=== PATIENT | female | born 1945 | race Caucasian/White ===

== ENCOUNTER 2017-12-18 13:33 | Observation (INO) ==
[2017-12-18 15:22] LABS: Basophils % 0.2 % (0.0-0.8); Hematocrit 29.2 VOL% (35.7-47.0); Hemoglobin 8.5 GM/DL (12.0-16.0); Immature Granulocytes % 0.6 %; Immature Granulocytes Absolute 0.07 #; Lymphocytes # 1.4 10*3/uL (1.4-4.0); Lymphocytes % 12.5 % (21.3-54.2); Mean Corpuscular HGB Conc 29.1 GM/DL (32-36); Mean Corpuscular Hemoglobin 22 PG (27-34); Mean Platelet Volume 9.8 FL (9.6-12.0); Monocytes # 0.4 10*3/uL (0.11-0.8); Monocytes % 3.9 % (1.7-12.7); Neutrophils # 9.3 10*3/uL (1.4-7.4); Neutrophils % 82.8 % (38.7-73.9); Platelet Count 377 T/CUMM (130-400); Red Blood Count 3.84 MC/CUMM (3.8-5.5); Red Cell Distribution Width 17.3 % (9.3-17.3); White Blood Count 11.3 T/CUMM (4-12)
[2017-12-18 15:44] LABS: Alanine Aminotransferase 29 U/L (13-56); Albumin 3.2 G/DL (3.4-5.0); Alkaline Phosphatase 76 U/L (45-117); Aspartate Amino Transferase 25 U/L (0-37); Bilirubin,Total < 0.39 MG/DL (0.2-1.0); Blood Urea Nitrogen 12 MG/DL (7-18); Calcium 8.8 MG/DL (8.5-10.1); Glucose 324 MG/DL (74-106); Osmolality,Calculated 285.8 MOS/KG (273-304); Potassium 4.3 MMOL/L (3.5-5.1); Sodium 137 MMOL/L (136-145); Total Protein 6.4 G/DL (6.4-8.3)
[2017-12-18] MEDS ORDERED: PANTOPRAZOLE 40 MG VIAL IV STA (16:09)
[2017-12-18] MEDS ORDERED: GLUCAGON 1 MG VIAL IM PRN (17:16)
[2017-12-18] MEDS ORDERED: DEXTROSE 50% 25 GM/50 ML VIAL IV PRN (17:16)
[2017-12-18] MEDS ORDERED: ONDANSETRON 4 MG/2 ML VIAL IV PRN (17:16)
[2017-12-18] MEDS ORDERED: MELATONIN 3 MG TABLET PO PRN (17:19)
[2017-12-18] MEDS ORDERED: UREA TOP PRN (17:19)
[2017-12-18] MEDS ORDERED: ALBUTEROL 2.5 MG/3 ML NEB RESP TX PRN (17:19)
[2017-12-18] MEDS ORDERED: FUROSEMIDE 20 MG TABLET PO PRN (17:19)
[2017-12-18] MEDS ORDERED: PSYLLIUM POWDER 3.7 GM/PACK PO PRN (17:19)
[2017-12-18] MEDS ORDERED: hydrOXYzine HCL 25 MG TABLET PO PRN (17:19)
[2017-12-18 18:44] LABS: Basophils % 0.2 % (0.0-0.8); Hematocrit 29.4 VOL% (35.7-47.0); Hemoglobin 8.5 GM/DL (12.0-16.0); Immature Granulocytes % 0.6 %; Immature Granulocytes Absolute 0.07 #; Lymphocytes # 1.5 10*3/uL (1.4-4.0); Lymphocytes % 12.7 % (21.3-54.2); Mean Corpuscular HGB Conc 28.9 GM/DL (32-36); Mean Corpuscular Hemoglobin 22 PG (27-34); Mean Corpuscular Volume 76.4 FL (87-102); Mean Platelet Volume 10.5 FL (9.6-12.0); Monocytes # 0.5 10*3/uL (0.11-0.8); Neutrophils # 9.4 10*3/uL (1.4-7.4); Neutrophils % 82.5 % (38.7-73.9); Platelet Count 401 T/CUMM (130-400); Red Blood Count 3.85 MC/CUMM (3.8-5.5); Red Cell Distribution Width 17.4 % (9.3-17.3); White Blood Count 11.4 T/CUMM (4-12)
[2017-12-18] MEDS: methylPREDNISolone SOD SUC 40 MG/1 ML VIAL IV SCH (18:52)
[2017-12-18] MEDS: AZITHROMYCIN 250 MG TABLET PO SCH (18:52)
[2017-12-18 19:20] LABS: Folate > 24.0 NG/ML (5.4-24.0); Vitamin B12 339 PG/ML (211-911)
[2017-12-18 21:04] LABS: Sedimentation Rate-Westergren 55 MM/HR (0-30)
[2017-12-18 21:11] LABS: Hemoglobin 8.8 GM/DL (12.0-16.0)
[2017-12-18 21:25] LABS: Hematocrit 30.8 VOL% (35.7-47.0)
[2017-12-18] MEDS: FLUTICASONE/SALMETEROL 500-50 DISKUS 14 DOSE INH SCH (21:41)
[2017-12-18] MEDS: diphenhydrAMINE CAP 25 MG CAPSULE PO SCH (21:41)
[2017-12-18] MEDS: INSULIN REGULAR 100 UNIT/ML SUBCUT SCH (21:41)
[2017-12-18] MEDS: ACETAMINOPHEN 325 MG TABLET PO PRN (21:46)
[2017-12-18] MEDS: ALBUTEROL 2.5 MG/3 ML NEB RESP TX SCH (23:08)
[2017-12-19 05:22] LABS: Basophils % 0.1 % (0.0-0.8); Hemoglobin 8.5 GM/DL (12.0-16.0); Immature Granulocytes % 0.5 %; Immature Granulocytes Absolute 0.06 #; Lymphocytes # 1.7 10*3/uL (1.4-4.0); Lymphocytes % 13.7 % (21.3-54.2); Mean Corpuscular HGB Conc 28.7 GM/DL (32-36); Mean Corpuscular Hemoglobin 22 PG (27-34); Mean Corpuscular Volume 75.9 FL (87-102); Mean Platelet Volume 9.8 FL (9.6-12.0); Monocytes # 0.7 10*3/uL (0.11-0.8); Monocytes % 5.4 % (1.7-12.7); Neutrophils # 10.1 10*3/uL (1.4-7.4); Neutrophils % 80.3 % (38.7-73.9); Platelet Count 394 T/CUMM (130-400); Red Cell Distribution Width 17.2 % (9.3-17.3); White Blood Count 12.6 T/CUMM (4-12)
[2017-12-19 05:24] LABS: Hemoglobin 8.5 GM/DL (12.0-16.0)
[2017-12-19 05:30] LABS: Hematocrit 29.6 VOL% (35.7-47.0); Hematocrit 29.7 VOL% (35.7-47.0)
[2017-12-19 05:43] LABS: Hypochromasia 1+
[2017-12-19 05:44] LABS: Microcytosis 2+; Ovalocytes Few; Platelet Estimate Normal; Polychromasia Slight; Spherocytes Slight; Target Cells Slight
[2017-12-19] MEDS: methylPREDNISolone SOD SUC 40 MG/1 ML VIAL IV SCH ×2 (05:55→21:15)
[2017-12-19 06:08] LABS: Calcium 8.9 MG/DL (8.5-10.1); Osmolality,Calculated 281.8 MOS/KG (273-304); Risk Ratio 2.01; Thyroid Stimulating Hormone 0.211 uIU/ml (0.358-3.74); VLDL CHOLESTEROL 23.2 MG/DL
[2017-12-19] MEDS: ALBUTEROL 2.5 MG/3 ML NEB RESP TX SCH ×3 (07:44→23:32)
[2017-12-19] MEDS: INSULIN REGULAR 100 UNIT/ML SUBCUT SCH ×4 (08:13→21:15)
[2017-12-19] MEDS: FLUTICASONE/SALMETEROL 500-50 DISKUS 14 DOSE INH SCH ×2 (08:15→21:14)
[2017-12-19 08:44] LABS: Hemoglobin A1 (Alkaline) 97.5 % (96.5-98.5); Hemoglobin A2 (Alkaline) 2.5 % (1.5-3.5)
[2017-12-19 08:49] LABS: Hematocrit 29.6 VOL% (35.7-47.0); Hemoglobin 8.6 GM/DL (12.0-16.0)
[2017-12-19] MEDS: FEXOFENADINE 60 MG TABLET PO SCH ×2 (08:56→12:14)
[2017-12-19] MEDS: DILTIAZEM CD 120 MG CAPSULE PO SCH ×2 (08:56→12:15)
[2017-12-19] MEDS: SPIRONOLACTONE 25 MG TABLET PO SCH ×2 (08:56→12:15)
[2017-12-19] MEDS: LACTOBACILLUS ACIDOPHILUS/BULGARICUS CAPLET PO SCH ×2 (08:56→12:14)
[2017-12-19] MEDS: MULTIVITAMIN (CENTRUM) TABLET PO SCH ×2 (08:57→12:14)
[2017-12-19] MEDS: LOSARTAN 50 MG TABLET PO SCH ×2 (08:57→12:15)
[2017-12-19] MEDS: FLUoxetine 20 MG CAPSULE PO SCH ×2 (08:57→12:15)
[2017-12-19] MEDS: PANTOPRAZOLE 40 MG TABLET PO SCH ×2 (08:57→13:29)
[2017-12-19] MEDS: diphenhydrAMINE CAP 25 MG CAPSULE PO SCH (21:14)
[2017-12-20] MEDS: ALBUTEROL 2.5 MG/3 ML NEB RESP TX SCH ×3 (07:22→22:59)
[2017-12-20] MEDS: INSULIN REGULAR 100 UNIT/ML SUBCUT SCH ×4 (08:18→21:34)
[2017-12-20] MEDS: FLUTICASONE/SALMETEROL 500-50 DISKUS 14 DOSE INH SCH ×2 (08:18→21:38)
[2017-12-20] MEDS ORDERED: LIDOCAINE 100 MG/5 ML SYRINGE ONE (10:00)
[2017-12-20] MEDS ORDERED: PROPOFOL 200 MG/20 ML VIAL IV ONE (10:00)
[2017-12-20] MEDS: LACTOBACILLUS ACIDOPHILUS/BULGARICUS CAPLET PO SCH (14:00)
[2017-12-20] MEDS: AZITHROMYCIN 250 MG TABLET PO SCH (14:00)
[2017-12-20] MEDS: SPIRONOLACTONE 25 MG TABLET PO SCH (14:00)
[2017-12-20] MEDS: DILTIAZEM CD 120 MG CAPSULE PO SCH (14:01)
[2017-12-20] MEDS: MULTIVITAMIN (CENTRUM) TABLET PO SCH (14:01)
[2017-12-20] MEDS: FLUoxetine 20 MG CAPSULE PO SCH (14:01)
[2017-12-20] MEDS: FEXOFENADINE 60 MG TABLET PO SCH (14:01)
[2017-12-20] MEDS: LOSARTAN 50 MG TABLET PO SCH (14:01)
[2017-12-20] MEDS: PANTOPRAZOLE 40 MG TABLET PO SCH (14:01)
[2017-12-20] MEDS: methylPREDNISolone SOD SUC 40 MG/1 ML VIAL IV SCH ×2 (14:02→21:34)
[2017-12-20] MEDS: diphenhydrAMINE CAP 25 MG CAPSULE PO SCH (21:33)
[2017-12-21] MEDS: ACETAMINOPHEN 325 MG TABLET PO PRN (05:31)
[2017-12-21 06:39] LABS: Calcium 8.7 MG/DL (8.5-10.1); Osmolality,Calculated 290.5 MOS/KG (273-304); Potassium 4.1 MMOL/L (3.5-5.1)
[2017-12-21 06:59] LABS: Basophils % 0.1 % (0.0-0.8); Immature Granulocytes % 0.9 %; Immature Granulocytes Absolute 0.12 #; Lymphocytes # 0.9 10*3/uL (1.4-4.0); Lymphocytes % 6.8 % (21.3-54.2); Mean Corpuscular HGB Conc 28.8 GM/DL (32-36); Mean Corpuscular Hemoglobin 22 PG (27-34); Mean Corpuscular Volume 74.9 FL (87-102); Mean Platelet Volume 10.3 FL (9.6-12.0); Monocytes # 0.6 10*3/uL (0.11-0.8); Monocytes % 4.6 % (1.7-12.7); Neutrophils # 11.9 10*3/uL (1.4-7.4); Neutrophils % 87.6 % (38.7-73.9); Platelet Count 450 T/CUMM (130-400); Red Blood Count 4.27 MC/CUMM (3.8-5.5); Red Cell Distribution Width 17.1 % (9.3-17.3); White Blood Count 13.6 T/CUMM (4-12)
[2017-12-21 07:10] LABS: Hemoglobin 9.2 GM/DL (12.0-16.0)
[2017-12-21 07:16] LABS: Hypochromasia 1+; Microcytosis 1+; Platelet Estimate Adequate
[2017-12-21] MEDS: ALBUTEROL 2.5 MG/3 ML NEB RESP TX SCH ×2 (07:52→14:00)
[2017-12-21] MEDS ORDERED: predniSONE 20 MG TABLET PO SCH (09:00)
[2017-12-21] MEDS ORDERED: FERROUS GLUCONATE 240 MG TABLET PO SCH (09:00)
[2017-12-21] MEDS: INSULIN REGULAR 100 UNIT/ML SUBCUT SCH ×3 (09:13→16:12)
[2017-12-21] MEDS: FLUTICASONE/SALMETEROL 500-50 DISKUS 14 DOSE INH SCH (09:14)
[2017-12-21] MEDS: FLUoxetine 20 MG CAPSULE PO SCH (09:14)
[2017-12-21] MEDS: SPIRONOLACTONE 25 MG TABLET PO SCH (09:14)
[2017-12-21] MEDS: PANTOPRAZOLE 40 MG TABLET PO SCH (09:15)
[2017-12-21] MEDS: FEXOFENADINE 60 MG TABLET PO SCH (09:15)
[2017-12-21] MEDS: LACTOBACILLUS ACIDOPHILUS/BULGARICUS CAPLET PO SCH (09:15)
[2017-12-21] MEDS: MULTIVITAMIN (CENTRUM) TABLET PO SCH (09:15)
[2017-12-21] MEDS: LOSARTAN 50 MG TABLET PO SCH (09:18)
[2017-12-21] MEDS: DILTIAZEM CD 120 MG CAPSULE PO SCH (09:18)
[2017-12-21 16:37] VITALS: BP 141/70
== END 2017-12-21 17:46 | disposition home or self-care (01) ==
LOC: EDBD → EDUNIT# → N.ED 13:33 → N.EDINP 13:33 → N.2E 17:33
PROVIDERS: ADMIT Internal Medicine; ATTEND Family Medicine

== ENCOUNTER 2018-03-26 16:16 | Inpatient (IN) ==
[2018-03-26] MEDS ORDERED: SODIUM CHLORIDE 0.9% 1,000 ML IV STA (17:00)
[2018-03-26] MEDS ORDERED: HYDROCORTISONE 100 MG VIAL IV STA (17:00)
[2018-03-26 18:26] LABS: Alanine Aminotransferase 16 U/L (13-56); Albumin 2.8 G/DL (3.4-5.0); Alkaline Phosphatase 79 U/L (45-117); Aspartate Amino Transferase 23 U/L (0-37); Bilirubin,Total < 0.39 MG/DL (0.2-1.0); Blood Urea Nitrogen 11 MG/DL (7-18); Calcium 8.4 MG/DL (8.5-10.1); Glucose 186 MG/DL (74-106); Osmolality,Calculated 282.4 MOS/KG (273-304); Potassium 3.8 MMOL/L (3.5-5.1); Sodium 140 MMOL/L (136-145); Total Protein 6.3 G/DL (6.4-8.3)
[2018-03-26 18:35] LABS: Basophils # 0.1 10*3/uL (0.0-0.2); Basophils % 0.5 % (0.0-0.8); Eosinophils # 0.1 10*3/uL (0.0-0.87); Eosinophils % 0.5 % (0.00-10.9); Hematocrit 26.1 VOL% (35.7-47.0); Hemoglobin 7.2 GM/DL (12.0-16.0); Immature Granulocytes % 0.5 %; Immature Granulocytes Absolute 0.06 #; Lymphocytes # 2.7 10*3/uL (1.4-4.0); Lymphocytes % 23.9 % (21.3-54.2); Mean Corpuscular HGB Conc 27.6 GM/DL (32-36); Mean Corpuscular Hemoglobin 21 PG (27-34); Mean Corpuscular Volume 74.6 FL (87-102); Mean Platelet Volume 9.8 FL (9.6-12.0); Monocytes # 0.7 10*3/uL (0.11-0.8); Monocytes % 6.6 % (1.7-12.7); Neutrophils # 7.6 10*3/uL (1.4-7.4); Platelet Count 451 T/CUMM (130-400); Red Cell Distribution Width 17.3 % (9.3-17.3); White Blood Count 11.2 T/CUMM (4-12)
[2018-03-26] MEDS ORDERED: ONDANSETRON 4 MG/2 ML VIAL IV PRN (18:57)
[2018-03-26 19:50] LABS: % Iron Saturation 3.2 % (18-50); Ferritin 9.6 ng/ml (8-252)
[2018-03-26] MEDS: ACETAMINOPHEN 325 MG TABLET PO PRN (22:36)
[2018-03-26] MEDS: DOCUSATE SODIUM 100 MG CAPSULE PO SCH (22:57)
[2018-03-27 06:44] LABS: Basophils # 0.1 10*3/uL (0.0-0.2); Basophils % 0.6 % (0.0-0.8); Eosinophils # 0.2 10*3/uL (0.0-0.87); Eosinophils % 1.6 % (0.00-10.9); Hematocrit 25.8 VOL% (35.7-47.0); Immature Granulocytes % 0.7 %; Immature Granulocytes Absolute 0.08 #; Lymphocytes # 4.6 10*3/uL (1.4-4.0); Lymphocytes % 38.1 % (21.3-54.2); Mean Corpuscular HGB Conc 27.5 GM/DL (32-36); Mean Corpuscular Hemoglobin 20 PG (27-34); Mean Corpuscular Volume 73.7 FL (87-102); Mean Platelet Volume 9.8 FL (9.6-12.0); Monocytes # 1.1 10*3/uL (0.11-0.8); Monocytes % 9.3 % (1.7-12.7); Neutrophils % 49.7 % (38.7-73.9); Platelet Count 411 T/CUMM (130-400); Red Cell Distribution Width 17.5 % (9.3-17.3)
[2018-03-27 06:46] LABS: Hemoglobin 7.1 GM/DL (12.0-16.0)
[2018-03-27 06:59] LABS: Hypochromasia Slight; Platelet Estimate Normal; Polychromasia Few
[2018-03-27] MEDS ORDERED: SODIUM CHLORIDE 0.9% 1,000 ML IV PRN (08:21)
[2018-03-27] MEDS: PANTOPRAZOLE 40 MG VIAL IV SCH (09:10)
[2018-03-27] MEDS: DOCUSATE SODIUM 100 MG CAPSULE PO SCH ×2 (09:12→20:45)
[2018-03-27] MEDS ORDERED: UREA TOP PRN (09:42)
[2018-03-27] MEDS ORDERED: hydrOXYzine HCL 25 MG TABLET PO PRN (09:42)
[2018-03-27] MEDS ORDERED: ALBUTEROL 2.5 MG/3 ML NEB RESP TX PRN (09:42)
[2018-03-27] MEDS ORDERED: DEXTROSE 50% 25 GM/50 ML SYRINGE IV PRN (09:45)
[2018-03-27] MEDS ORDERED: GLUCAGON 1 MG VIAL IM PRN (09:45)
[2018-03-27] MEDS: ACETAMINOPHEN 325 MG TABLET PO PRN (10:05)
[2018-03-27] MEDS: DILTIAZEM CD 120 MG CAPSULE PO SCH (10:06)
[2018-03-27] MEDS: INSULIN REGULAR 100 UNIT/ML SUBCUT SCH ×3 (11:36→20:37)
[2018-03-27] MEDS: ALBUTEROL 2.5 MG/3 ML NEB RESP TX SCH (14:03)
[2018-03-27] MEDS: FLUTICASONE/SALMETEROL 500-50 DISKUS 14 DOSE INH SCH (20:31)
[2018-03-27] MEDS: METHOCARBAMOL 500 MG TABLET PO SCH (20:36)
[2018-03-27] MEDS: diphenhydrAMINE CAP 25 MG CAPSULE PO SCH (20:36)
[2018-03-27] MEDS: FLUoxetine 20 MG CAPSULE PO SCH (20:37)
[2018-03-27] MEDS: MELATONIN 3 MG TABLET PO SCH (20:37)
[2018-03-27] MEDS: INSULIN GLARGINE 100 UNIT/ML SUBCUT SCH (20:45)
[2018-03-28] MEDS: ALBUTEROL 2.5 MG/3 ML NEB RESP TX SCH ×4 (00:07→23:50)
[2018-03-28 06:19] LABS: Basophils # 0.1 10*3/uL (0.0-0.2); Basophils % 0.7 % (0.0-0.8); Eosinophils # 0.5 10*3/uL (0.0-0.87); Eosinophils % 3.6 % (0.00-10.9); Hematocrit 30.2 VOL% (35.7-47.0); Immature Granulocytes % 0.5 %; Immature Granulocytes Absolute 0.07 #; Lymphocytes # 4.4 10*3/uL (1.4-4.0); Lymphocytes % 32.3 % (21.3-54.2); Mean Corpuscular HGB Conc 28.5 GM/DL (32-36); Mean Corpuscular Hemoglobin 22 PG (27-34); Mean Corpuscular Volume 75.9 FL (87-102); Mean Platelet Volume 9.8 FL (9.6-12.0); Monocytes # 1.2 10*3/uL (0.11-0.8); Monocytes % 8.7 % (1.7-12.7); Neutrophils # 7.4 10*3/uL (1.4-7.4); Neutrophils % 54.2 % (38.7-73.9); Platelet Count 429 T/CUMM (130-400); Red Blood Count 3.98 MC/CUMM (3.8-5.5); Red Cell Distribution Width 17.2 % (9.3-17.3); White Blood Count 13.7 T/CUMM (4-12)
[2018-03-28 06:24] LABS: Hemoglobin 8.6 GM/DL (12.0-16.0)
[2018-03-28 06:26] LABS: Hypochromasia 1+; Ovalocytes Slight; Platelet Estimate Adequate
[2018-03-28] MEDS: DILTIAZEM CD 120 MG CAPSULE PO SCH (08:47)
[2018-03-28] MEDS: LOSARTAN 50 MG TABLET PO SCH (08:47)
[2018-03-28] MEDS: METHOCARBAMOL 500 MG TABLET PO SCH ×2 (08:48→21:30)
[2018-03-28] MEDS: predniSONE 10 MG TABLET PO SCH (08:48)
[2018-03-28] MEDS: DOCUSATE SODIUM 100 MG CAPSULE PO SCH ×2 (08:48→21:25)
[2018-03-28] MEDS: FEXOFENADINE 60 MG TABLET PO SCH (08:48)
[2018-03-28] MEDS: PANTOPRAZOLE 40 MG VIAL IV SCH (08:49)
[2018-03-28] MEDS: INSULIN REGULAR 100 UNIT/ML SUBCUT SCH ×5 (08:49→21:44)
[2018-03-28] MEDS: AZITHROMYCIN 250 MG TABLET PO SCH (08:50)
[2018-03-28] MEDS: FLUTICASONE/SALMETEROL 500-50 DISKUS 14 DOSE INH SCH ×2 (08:55→21:26)
[2018-03-28] MEDS: ACETAMINOPHEN 325 MG TABLET PO PRN (16:10)
[2018-03-28] MEDS: diphenhydrAMINE CAP 25 MG CAPSULE PO SCH (21:25)
[2018-03-28] MEDS: MELATONIN 3 MG TABLET PO SCH (21:25)
[2018-03-28] MEDS: FLUoxetine 20 MG CAPSULE PO SCH (21:25)
[2018-03-28] MEDS: INSULIN GLARGINE 100 UNIT/ML SUBCUT SCH (21:26)
[2018-03-29] MEDS: ACETAMINOPHEN 325 MG TABLET PO PRN ×3 (00:26→23:34)
[2018-03-29] MEDS: ALBUTEROL 2.5 MG/3 ML NEB RESP TX SCH ×3 (07:00→23:45)
[2018-03-29] MEDS: DILTIAZEM CD 120 MG CAPSULE PO SCH (08:17)
[2018-03-29] MEDS: predniSONE 10 MG TABLET PO SCH (08:17)
[2018-03-29] MEDS: FEXOFENADINE 60 MG TABLET PO SCH (08:17)
[2018-03-29] MEDS: PANTOPRAZOLE 40 MG VIAL IV SCH (08:18)
[2018-03-29] MEDS: LOSARTAN 50 MG TABLET PO SCH (08:18)
[2018-03-29] MEDS: METHOCARBAMOL 500 MG TABLET PO SCH ×2 (08:18→21:41)
[2018-03-29] MEDS: DOCUSATE SODIUM 100 MG CAPSULE PO SCH ×2 (08:18→21:40)
[2018-03-29] MEDS: FLUTICASONE/SALMETEROL 500-50 DISKUS 14 DOSE INH SCH ×2 (08:20→21:42)
[2018-03-29] MEDS: INSULIN REGULAR 100 UNIT/ML SUBCUT SCH ×4 (08:32→21:40)
[2018-03-29] MEDS ORDERED: FERROUS GLUCONATE 240 MG TABLET PO SCH (09:00)
[2018-03-29] MEDS ORDERED: LOPERAMIDE 2 MG CAPSULE PO PRN (16:38)
[2018-03-29] MEDS: predniSONE 20 MG TABLET PO SCH (18:45)
[2018-03-29] MEDS: FLUoxetine 20 MG CAPSULE PO SCH (21:40)
[2018-03-29] MEDS: MELATONIN 3 MG TABLET PO SCH (21:40)
[2018-03-29] MEDS: diphenhydrAMINE CAP 25 MG CAPSULE PO SCH (21:40)
[2018-03-29] MEDS: INSULIN GLARGINE 100 UNIT/ML SUBCUT SCH (21:41)
[2018-03-30 05:37] LABS: Hematocrit 30.9 VOL% (35.7-47.0)
[2018-03-30 05:38] LABS: Hemoglobin 8.9 GM/DL (12.0-16.0)
[2018-03-30] MEDS: ALBUTEROL 2.5 MG/3 ML NEB RESP TX SCH (07:40)
[2018-03-30] MEDS: predniSONE 20 MG TABLET PO SCH (13:18)
[2018-03-30] MEDS: LOSARTAN 50 MG TABLET PO SCH (13:18)
[2018-03-30] MEDS: DILTIAZEM CD 120 MG CAPSULE PO SCH (13:18)
[2018-03-30] MEDS: DOCUSATE SODIUM 100 MG CAPSULE PO SCH (13:18)
[2018-03-30] MEDS: FEXOFENADINE 60 MG TABLET PO SCH (13:19)
[2018-03-30] MEDS: PANTOPRAZOLE 40 MG VIAL IV SCH (13:21)
[2018-03-30] MEDS: predniSONE 10 MG TABLET PO SCH (13:21)
[2018-03-30] MEDS: METHOCARBAMOL 500 MG TABLET PO SCH (13:22)
[2018-03-30] MEDS: AZITHROMYCIN 250 MG TABLET PO SCH (13:22)
[2018-03-30] MEDS: INSULIN REGULAR 100 UNIT/ML SUBCUT SCH ×2 (13:24→13:25)
[2018-03-30] MEDS: FLUTICASONE/SALMETEROL 500-50 DISKUS 14 DOSE INH SCH (13:24)
[2018-03-30 14:18] VITALS: BP 143/79
== END 2018-03-30 13:25 | disposition home health service (06) | DRG 812 ==
LOC: EDBD → EDUNIT# → N.EDINP 16:16 → N.ED 16:16 → SUPCPDRO 18:57 → N.4E 19:51
PROVIDERS: ADMIT Family Medicine; ATTEND Family Medicine

== ENCOUNTER 2018-04-14 12:48 | Inpatient (IN) ==
[2018-04-14] MEDS: LACTATED RINGERS 1,000 ML IV SCH ×2 (13:34→15:42)
[2018-04-14 13:48] LABS: Apearance,Urine CLEAR (Clear); Bilirubin,Urine Negative (Negative); Blood, Urine Negative (Negative); Glucose,Urine (UA) Negative (Negative); Ketones,Urine 20 mg/dL (Negative); Mucus,Urine Few /LPF (Occasional); Nitrite,Urine Positive (Negative); Protein,Urine 100 MG/DL; RBC,Urine 1 /HPF (0-4); Urine Specific Gravity 1.025 (1.001-1.035); WBC,Urine 7 /HPF (0-6)
[2018-04-14 13:52] LABS: Urine Color ORANGE (Yellow)
[2018-04-14 14:03] LABS: Alanine Aminotransferase 12 U/L (13-56); Albumin 2.5 G/DL (3.4-5.0); Alkaline Phosphatase 84 U/L (45-117); Aspartate Amino Transferase 16 U/L (0-37); Blood Urea Nitrogen 10 MG/DL (7-18); Calcium 8.7 MG/DL (8.5-10.1); Glucose 190 MG/DL (74-106); Osmolality,Calculated 278.7 MOS/KG (273-304); Potassium 3.8 MMOL/L (3.5-5.1); Sodium 138 MMOL/L (136-145); Total Protein 6.2 G/DL (6.4-8.3)
[2018-04-14 14:05] LABS: Basophils # 0.1 10*3/uL (0.0-0.2); Basophils % 0.4 % (0.0-0.8); Eosinophils # 0.3 10*3/uL (0.0-0.87); Eosinophils % 1.9 % (0.00-10.9); Hematocrit 31.5 VOL% (35.7-47.0); Immature Granulocytes % 0.6 %; Immature Granulocytes Absolute 0.09 #; Lymphocytes # 0.9 10*3/uL (1.4-4.0); Lymphocytes % 5.6 % (21.3-54.2); Mean Corpuscular HGB Conc 28.3 GM/DL (32-36); Mean Corpuscular Hemoglobin 22 PG (27-34); Mean Corpuscular Volume 76.5 FL (87-102); Mean Platelet Volume 9.8 FL (9.6-12.0); Monocytes # 0.6 10*3/uL (0.11-0.8); Monocytes % 3.7 % (1.7-12.7); Neutrophils % 87.8 % (38.7-73.9); Platelet Count 399 T/CUMM (130-400); Red Blood Count 4.12 MC/CUMM (3.8-5.5); Red Cell Distribution Width 19.3 % (9.3-17.3); White Blood Count 15.9 T/CUMM (4-12)
[2018-04-14 14:06] LABS: Hemoglobin 8.9 GM/DL (12.0-16.0)
[2018-04-14] MEDS ORDERED: cefTRIAXone 1,000 MG in SODIUM CHLORIDE 0.9% 100 ML IV STA (14:31)
[2018-04-14] MEDS ORDERED: LACTATED RINGERS 1,000 ML IV SCH (16:40)
[2018-04-14] MEDS: ACETAMINOPHEN 500 MG TABLET PO PRN (18:25)
[2018-04-14] MEDS ORDERED: ALBUTEROL 2.5 MG/3 ML NEB RESP TX PRN (21:15)
[2018-04-14] MEDS ORDERED: UREA TOP PRN (21:15)
[2018-04-14] MEDS ORDERED: ONDANSETRON 4 MG TABLET PO PRN (21:15)
[2018-04-14] MEDS: diphenhydrAMINE CAP 25 MG CAPSULE PO SCH (22:47)
[2018-04-14] MEDS: MELATONIN 3 MG TABLET PO SCH (22:48)
[2018-04-14] MEDS: ALBUTEROL 2.5 MG/3 ML NEB RESP TX SCH (23:54)
[2018-04-15] MEDS: LACTATED RINGERS 1,000 ML IV SCH ×3 (01:21→09:39)
[2018-04-15 05:18] LABS: Albumin 2.4 G/DL (3.4-5.0); Bilirubin,Total 0.4 MG/DL (0.2-1.0); Calcium 8.6 MG/DL (8.5-10.1); Ferritin 21.6 ng/ml (8-252); Osmolality,Calculated 273.7 MOS/KG (273-304); Potassium 3.7 MMOL/L (3.5-5.1); Risk Ratio 2.16; Thyroid Stimulating Hormone 1.94 uIU/ml (0.358-3.74); VLDL CHOLESTEROL 17.4 MG/DL
[2018-04-15 05:30] LABS: Basophils # 0.1 10*3/uL (0.0-0.2); Basophils % 0.5 % (0.0-0.8); Eosinophils # 0.2 10*3/uL (0.0-0.87); Eosinophils % 1.3 % (0.00-10.9); Hematocrit 28.3 VOL% (35.7-47.0); Immature Granulocytes % 0.5 %; Immature Granulocytes Absolute 0.07 #; Lymphocytes % 26.1 % (21.3-54.2); Mean Corpuscular HGB Conc 28.3 GM/DL (32-36); Mean Corpuscular Hemoglobin 22 PG (27-34); Mean Corpuscular Volume 76.5 FL (87-102); Mean Platelet Volume 10.3 FL (9.6-12.0); Monocytes # 0.9 10*3/uL (0.11-0.8); Monocytes % 5.6 % (1.7-12.7); Neutrophils # 10.1 10*3/uL (1.4-7.4); Platelet Count 387 T/CUMM (130-400); Red Cell Distribution Width 19.4 % (9.3-17.3); White Blood Count 15.3 T/CUMM (4-12)
[2018-04-15 05:54] LABS: Hypochromasia 1+; Microcytosis 1+; Ovalocytes Slight
[2018-04-15 05:55] LABS: Anisocytosis 1+; Platelet Estimate Normal
[2018-04-15] MEDS: ALBUTEROL 2.5 MG/3 ML NEB RESP TX SCH ×4 (07:23→19:19)
[2018-04-15] MEDS: FLUTICASONE/SALMETEROL 500-50 DISKUS 14 DOSE INH SCH ×2 (08:43→22:49)
[2018-04-15] MEDS: predniSONE 10 MG TABLET PO SCH (08:43)
[2018-04-15] MEDS: INSULIN LISPRO 100 UNIT/ML SUBCUT SCH ×4 (08:43→22:47)
[2018-04-15] MEDS: LOSARTAN 50 MG TABLET PO SCH (08:44)
[2018-04-15] MEDS: FEXOFENADINE 60 MG TABLET PO SCH (08:44)
[2018-04-15] MEDS: DILTIAZEM CD 120 MG CAPSULE PO SCH (08:45)
[2018-04-15] MEDS: methylPREDNISolone SOD SUC 40 MG/1 ML VIAL IV SCH ×2 (11:04→18:15)
[2018-04-15] MEDS: LACTATED RINGERS IV SCH (12:46)
[2018-04-15] MEDS: MAGNESIUM SULF IV SCH (12:46)
[2018-04-15] MEDS: INSULIN GLARGINE 100 UNIT/ML SUBCUT SCH (22:48)
[2018-04-15] MEDS: MELATONIN 3 MG TABLET PO SCH (22:49)
[2018-04-15] MEDS: diphenhydrAMINE CAP 25 MG CAPSULE PO SCH (22:49)
[2018-04-15] MEDS: FLUoxetine 20 MG CAPSULE PO SCH (22:49)
[2018-04-15] MEDS: cefTRIAXone 1,000 MG in SYRINGE 1 EACH IV SCH (22:52)
[2018-04-16] MEDS: ALBUTEROL 2.5 MG/3 ML NEB RESP TX SCH ×6 (00:34→19:21)
[2018-04-16] MEDS: ACETAMINOPHEN 500 MG TABLET PO PRN ×3 (01:26→21:16)
[2018-04-16] MEDS: MAGNESIUM SULF IV SCH ×2 (02:01→16:41)
[2018-04-16] MEDS: LACTATED RINGERS IV SCH ×2 (02:01→16:41)
[2018-04-16] MEDS: methylPREDNISolone SOD SUC 40 MG/1 ML VIAL IV SCH ×2 (03:50→11:45)
[2018-04-16 05:38] LABS: Calcium 8.7 MG/DL (8.5-10.1); Osmolality,Calculated 283.5 MOS/KG (273-304); Potassium 4.6 MMOL/L (3.5-5.1)
[2018-04-16 05:48] LABS: Basophils % 0.2 % (0.0-0.8); Hematocrit 29.1 VOL% (35.7-47.0); Immature Granulocytes % 0.5 %; Immature Granulocytes Absolute 0.05 #; Lymphocytes # 1.2 10*3/uL (1.4-4.0); Lymphocytes % 12.3 % (21.3-54.2); Mean Corpuscular HGB Conc 28.2 GM/DL (32-36); Mean Corpuscular Hemoglobin 22 PG (27-34); Mean Corpuscular Volume 76.4 FL (87-102); Mean Platelet Volume 9.8 FL (9.6-12.0); Monocytes # 0.6 10*3/uL (0.11-0.8); Monocytes % 5.6 % (1.7-12.7); Neutrophils % 81.4 % (38.7-73.9); Platelet Count 368 T/CUMM (130-400); Red Blood Count 3.81 MC/CUMM (3.8-5.5); Red Cell Distribution Width 19.6 % (9.3-17.3); White Blood Count 9.8 T/CUMM (4-12)
[2018-04-16 05:49] LABS: Hemoglobin 8.2 GM/DL (12.0-16.0)
[2018-04-16 06:07] LABS: Platelet Estimate Normal
[2018-04-16] MEDS: INSULIN LISPRO 100 UNIT/ML SUBCUT SCH ×4 (09:35→21:14)
[2018-04-16] MEDS: predniSONE 10 MG TABLET PO SCH (09:36)
[2018-04-16] MEDS: FERROUS GLUCONATE 240 MG TABLET PO SCH (09:36)
[2018-04-16] MEDS: DILTIAZEM CD 120 MG CAPSULE PO SCH (09:36)
[2018-04-16] MEDS: FLUTICASONE/SALMETEROL 500-50 DISKUS 14 DOSE INH SCH ×2 (09:36→21:17)
[2018-04-16] MEDS: LOSARTAN 50 MG TABLET PO SCH (09:36)
[2018-04-16] MEDS: FEXOFENADINE 60 MG TABLET PO SCH (09:36)
[2018-04-16] MEDS: INSULIN GLARGINE 100 UNIT/ML SUBCUT SCH (21:14)
[2018-04-16] MEDS: MELATONIN 3 MG TABLET PO SCH (21:16)
[2018-04-16] MEDS: diphenhydrAMINE CAP 25 MG CAPSULE PO SCH (21:17)
[2018-04-16] MEDS: cefTRIAXone 1,000 MG in SYRINGE 1 EACH IV SCH (21:17)
[2018-04-16] MEDS: FLUoxetine 20 MG CAPSULE PO SCH (21:17)
[2018-04-17] MEDS: methylPREDNISolone SOD SUC 40 MG/1 ML VIAL IV SCH ×3 (00:02→23:41)
[2018-04-17] MEDS: ALBUTEROL 2.5 MG/3 ML NEB RESP TX SCH ×7 (00:39→23:21)
[2018-04-17 06:01] LABS: Calcium 8.9 MG/DL (8.5-10.1); Osmolality,Calculated 283.7 MOS/KG (273-304); Potassium 3.9 MMOL/L (3.5-5.1)
[2018-04-17 06:12] LABS: Basophils % 0.1 % (0.0-0.8); Hematocrit 30.8 VOL% (35.7-47.0); Immature Granulocytes % 1.1 %; Immature Granulocytes Absolute 0.15 #; Lymphocytes # 0.8 10*3/uL (1.4-4.0); Lymphocytes % 5.7 % (21.3-54.2); Mean Corpuscular HGB Conc 28.6 GM/DL (32-36); Mean Corpuscular Hemoglobin 22 PG (27-34); Mean Corpuscular Volume 75.5 FL (87-102); Mean Platelet Volume 10.1 FL (9.6-12.0); Monocytes # 0.6 10*3/uL (0.11-0.8); Monocytes % 4.1 % (1.7-12.7); Neutrophils # 12.6 10*3/uL (1.4-7.4); Platelet Count 448 T/CUMM (130-400); Red Blood Count 4.08 MC/CUMM (3.8-5.5); Red Cell Distribution Width 19.7 % (9.3-17.3); White Blood Count 14.2 T/CUMM (4-12)
[2018-04-17 06:14] LABS: Hemoglobin 8.8 GM/DL (12.0-16.0)
[2018-04-17 06:27] LABS: Hypochromasia 2+; Microcytosis 1+; Ovalocytes Few
[2018-04-17 06:28] LABS: Platelet Estimate Increased
[2018-04-17] MEDS: MAGNESIUM SULF IV SCH (07:28)
[2018-04-17] MEDS: LACTATED RINGERS IV SCH (07:28)
[2018-04-17] MEDS: INSULIN LISPRO 100 UNIT/ML SUBCUT SCH ×4 (08:28→21:48)
[2018-04-17] MEDS: FLUTICASONE/SALMETEROL 500-50 DISKUS 14 DOSE INH SCH ×2 (08:28→21:50)
[2018-04-17] MEDS: DILTIAZEM CD 120 MG CAPSULE PO SCH (08:29)
[2018-04-17] MEDS: predniSONE 10 MG TABLET PO SCH (08:31)
[2018-04-17] MEDS: FEXOFENADINE 60 MG TABLET PO SCH (08:31)
[2018-04-17] MEDS: ACETAMINOPHEN 500 MG TABLET PO PRN ×3 (08:32→21:47)
[2018-04-17] MEDS: LOSARTAN 50 MG TABLET PO SCH (08:32)
[2018-04-17] MEDS ORDERED: FUROSEMIDE 40 MG/4 ML VIAL IV ONE (16:21)
[2018-04-17] MEDS: FLUoxetine 20 MG CAPSULE PO SCH (21:47)
[2018-04-17] MEDS: MELATONIN 3 MG TABLET PO SCH (21:47)
[2018-04-17] MEDS: diphenhydrAMINE CAP 25 MG CAPSULE PO SCH (21:47)
[2018-04-17] MEDS: INSULIN GLARGINE 100 UNIT/ML SUBCUT SCH (21:47)
[2018-04-18] MEDS: ALBUTEROL 2.5 MG/3 ML NEB RESP TX SCH ×6 (03:15→23:27)
[2018-04-18] MEDS: LOSARTAN 50 MG TABLET PO SCH (08:27)
[2018-04-18] MEDS: FERROUS GLUCONATE 240 MG TABLET PO SCH (08:29)
[2018-04-18] MEDS: predniSONE 10 MG TABLET PO SCH (08:29)
[2018-04-18] MEDS: DILTIAZEM CD 120 MG CAPSULE PO SCH (08:29)
[2018-04-18] MEDS: INSULIN LISPRO 100 UNIT/ML SUBCUT SCH ×4 (08:31→22:07)
[2018-04-18] MEDS: FLUTICASONE/SALMETEROL 500-50 DISKUS 14 DOSE INH SCH ×2 (08:33→21:26)
[2018-04-18] MEDS: FEXOFENADINE 60 MG TABLET PO SCH (08:34)
[2018-04-18] MEDS: methylPREDNISolone SOD SUC 40 MG/1 ML VIAL IV SCH (12:56)
[2018-04-18] MEDS: ACETAMINOPHEN 500 MG TABLET PO PRN ×2 (13:06→21:25)
[2018-04-18] MEDS ORDERED: LOPERAMIDE 2 MG CAPSULE PO PRN (17:36)
[2018-04-18] MEDS: INSULIN GLARGINE 100 UNIT/ML SUBCUT SCH (21:24)
[2018-04-18] MEDS: MELATONIN 3 MG TABLET PO SCH (21:25)
[2018-04-18] MEDS: FLUoxetine 20 MG CAPSULE PO SCH (21:25)
[2018-04-18] MEDS: PANTOPRAZOLE 40 MG TABLET PO SCH (21:25)
[2018-04-18] MEDS: diphenhydrAMINE CAP 25 MG CAPSULE PO SCH (21:26)
[2018-04-19] MEDS: ALBUTEROL 2.5 MG/3 ML NEB RESP TX SCH ×4 (03:20→14:00)
[2018-04-19] MEDS: INSULIN LISPRO 100 UNIT/ML SUBCUT SCH ×2 (08:57→12:26)
[2018-04-19] MEDS ORDERED: predniSONE 20 MG TABLET PO SCH (09:00)
[2018-04-19] MEDS: LOSARTAN 50 MG TABLET PO SCH (09:18)
[2018-04-19] MEDS: FEXOFENADINE 60 MG TABLET PO SCH (09:18)
[2018-04-19] MEDS: PANTOPRAZOLE 40 MG TABLET PO SCH (09:19)
[2018-04-19] MEDS: DILTIAZEM CD 120 MG CAPSULE PO SCH (09:21)
[2018-04-19] MEDS: FLUTICASONE/SALMETEROL 500-50 DISKUS 14 DOSE INH SCH (09:22)
[2018-04-19 12:47] VITALS: BP 147/82
== END 2018-04-19 14:00 | DRG 690 ==
LOC: EDUNIT# → EDBD → N.ED 12:48 → N.EDINP 14:44 → N.3E 15:52
PROVIDERS: ADMIT Family Medicine; ATTEND Family Medicine

== ENCOUNTER 2019-01-28 16:58 | Inpatient (IN) ==
[2019-01-28] MEDS ORDERED: FUROSEMIDE 100 MG/10 ML VIAL IV STA (17:34)
[2019-01-28] MEDS ORDERED: methylPREDNISolone SOD SUC 125 MG/2 ML VIAL IV STA (17:34)
[2019-01-28] MEDS ORDERED: ONDANSETRON 4 MG/2 ML VIAL IV STA (17:34)
[2019-01-28] MEDS ORDERED: PIPERACILLIN/TAZOBACTAM 3,375 MG in SODIUM CHLORIDE 0.9% 100 ML IV STA (17:34)
[2019-01-28 17:50] LABS: PT Patient Result 10.9 SECS (9.6-12.2)
[2019-01-28] MEDS ORDERED: ALBUTEROL 2.5 MG/3 ML NEB RESP TX SCH (18:00)
[2019-01-28 18:02] LABS: Basophils # 0.1 10*3/uL (0.0-0.2); Basophils % 0.8 % (0.0-0.8); Eosinophils # 0.1 10*3/uL (0.0-0.87); Eosinophils % 1.1 % (0.00-10.9); Hematocrit 33.1 VOL% (35.7-47.0); Hemoglobin 9.6 GM/DL (12.0-16.0); Immature Granulocytes % 0.6 %; Immature Granulocytes Absolute 0.06 #; Lymphocytes # 2.3 10*3/uL (1.4-4.0); Lymphocytes % 21.6 % (21.3-54.2); Mean Corpuscular Volume 87.3 FL (87-102); Mean Platelet Volume 10.3 FL (9.6-12.0); Monocytes % 7.2 % (1.7-12.7); Neutrophils % 68.7 % (38.7-73.9); Platelet Count 339 T/CUMM (130-400); Red Blood Count 3.79 MC/CUMM (3.8-5.5); Red Cell Distribution Width 17.4 % (9.3-17.3); White Blood Count 10.6 T/CUMM (4-12)
[2019-01-28 18:32] LABS: Alanine Aminotransferase 16 U/L (13-56); Albumin 2.9 G/DL (3.4-5.0); Alkaline Phosphatase 100 U/L (45-117); Aspartate Amino Transferase 16 U/L (0-37); Bilirubin,Total < 0.39 MG/DL (0.2-1.0); Blood Urea Nitrogen 8 MG/DL (7-18); Calcium 8.6 MG/DL (8.5-10.1); Estimated Glom Filtration Rate 126 ML/MIN; Glucose 205 MG/DL (74-106); Osmolality,Calculated 280.5 MOS/KG (273-304); Total Protein 6.2 G/DL (6.4-8.3)
[2019-01-28 18:43] LABS: Microcytosis 1+; Platelet Estimate Normal
[2019-01-28] MEDS ORDERED: MAGNESIUM SULF RIDER 2 GM in PREMIX 1 EACH IV STA (19:15)
[2019-01-28 20:13] LABS: Apearance,Urine CLEAR (Clear); Bacteria,Urine Occasional /HPF (Few); Bilirubin,Urine Negative (Negative); Blood, Urine Small mg/dL (Negative); Glucose,Urine (UA) 150 mg/dL (Negative); Ketones,Urine Negative (Negative); Mucus,Urine Occasional /LPF (Occasional); Nitrite,Urine Negative (Negative); Protein,Urine 100 MG/DL; RBC,Urine 1 /HPF (0-4); Urine Color Straw (Yellow); Urine Specific Gravity 1.005 (1.001-1.035); Urine Urobilinogen < 2.0 EU/DL (0.2-1.0); WBC,Urine <1 /HPF (0-6)
[2019-01-28] MEDS ORDERED: ACETAMINOPHEN 500 MG TABLET PO PRN (22:06)
[2019-01-28] MEDS ORDERED: MORPHINE 4 MG/1 ML VIAL IV PRN (22:06)
[2019-01-28] MEDS ORDERED: SODIUM CHLORIDE 0.9% 1,000 ML IV SCH (22:06)
[2019-01-28] MEDS ORDERED: INSULIN GLARGINE 100 UNIT/ML SUBCUT PRN (22:06)
[2019-01-28] MEDS ORDERED: DEXTROSE 10% 250 ML BAG IV PRN (22:06)
[2019-01-28] MEDS ORDERED: NON-FORMULARY MEDICATION (Albuterol Sulfate [Proair Hfa] 2 PUFF) INH PRN (22:06)
[2019-01-28] MEDS ORDERED: ONDANSETRON 4 MG/2 ML VIAL IV PRN (22:06)
[2019-01-28] MEDS ORDERED: Umeclidinium-Vilanterol [Anoro Ellipta] 1 inh INH SCH (22:06)
[2019-01-28] MEDS ORDERED: GLUCAGON 1 MG VIAL IM PRN (22:06)
[2019-01-28] MEDS ORDERED: PSYLLIUM POWDER 3.7 GM/PACK PO PRN (22:06)
[2019-01-28] MEDS: FERROUS GLUCONATE 324 MG TABLET PO SCH (23:10)
[2019-01-28] MEDS: FLUoxetine 20 MG CAPSULE PO SCH (23:12)
[2019-01-28] MEDS: ENOXAPARIN 40 MG/0.4 ML SYRINGE SUBCUT SCH ×2 (23:13→23:18)
[2019-01-28] MEDS: DOCUSATE SODIUM 100 MG CAPSULE PO SCH (23:13)
[2019-01-28] MEDS: diphenhydrAMINE CAP 25 MG CAPSULE PO SCH (23:14)
[2019-01-28] MEDS: PANTOPRAZOLE 40 MG TABLET PO SCH (23:15)
[2019-01-28] MEDS: MELATONIN 3 MG TABLET PO SCH (23:17)
[2019-01-28] MEDS: ACETAMINOPHEN 325 MG TABLET PO PRN (23:18)
[2019-01-28] MEDS: INSULIN REGULAR 100 UNIT/ML SUBCUT SCH (23:58)
[2019-01-29 05:18] LABS: Basophils % 0.4 % (0.0-0.8); Hemoglobin 10.1 GM/DL (12.0-16.0); Immature Granulocytes % 0.5 %; Immature Granulocytes Absolute 0.04 #; Lymphocytes # 0.9 10*3/uL (1.4-4.0); Mean Corpuscular HGB Conc 28.9 GM/DL (32-36); Mean Corpuscular Volume 87.5 FL (87-102); Mean Platelet Volume 9.6 FL (9.6-12.0); Monocytes % 2.5 % (1.7-12.7); Neutrophils % 84.6 % (38.7-73.9); Platelet Count 348 T/CUMM (130-400); Red Cell Distribution Width 17.2 % (9.3-17.3); White Blood Count 7.6 T/CUMM (4-12)
[2019-01-29 05:40] LABS: Albumin 2.9 G/DL (3.4-5.0); Calcium 8.6 MG/DL (8.5-10.1); Osmolality,Calculated 287.3 MOS/KG (273-304); Risk Ratio 2.06; Total Protein 6.9 G/DL (6.4-8.3)
[2019-01-29 05:46] LABS: Hematocrit 34.2 VOL% (35.7-47.0)
[2019-01-29] MEDS: INSULIN REGULAR 100 UNIT/ML SUBCUT SCH ×3 (06:00→18:20)
[2019-01-29] MEDS: ACETAMINOPHEN 325 MG TABLET PO PRN ×2 (06:00→13:18)
[2019-01-29] MEDS ORDERED: PANTOPRAZOLE 40 MG VIAL IV SCH (09:00)
[2019-01-29] MEDS: MULTIVITAMIN (CENTRUM) TABLET PO SCH (10:15)
[2019-01-29] MEDS: MONTELUKAST 10 MG TABLET PO SCH (10:15)
[2019-01-29] MEDS: CALCIUM (CARBONATE)/VITAMIN D 600 MG-400 UNIT TABLET PO SCH (10:15)
[2019-01-29] MEDS: DOCUSATE SODIUM 100 MG CAPSULE PO SCH ×2 (10:15→21:34)
[2019-01-29] MEDS: DILTIAZEM CD 120 MG CAPSULE PO SCH (10:17)
[2019-01-29] MEDS: FERROUS GLUCONATE 324 MG TABLET PO SCH ×2 (10:17→21:34)
[2019-01-29] MEDS: PANTOPRAZOLE 40 MG TABLET PO SCH ×2 (10:18→21:34)
[2019-01-29] MEDS: predniSONE 10 MG TABLET PO SCH (10:18)
[2019-01-29] MEDS: LOSARTAN 50 MG TABLET PO SCH (10:19)
[2019-01-29] MEDS: FLUTICASONE 50 MCG NASAL SPRAY 16 GM BOTTLE BOTH NARES SCH (10:19)
[2019-01-29] MEDS: ALBUTEROL 2.5 MG/3 ML NEB RESP TX PRN (15:00)
[2019-01-29] MEDS: SKIN HEALING OINT (AQUAPHOR) 50 GM TUBE TOP SCH (17:48)
[2019-01-29] MEDS: PIPERACILLIN/TAZOBACTAM 3,375 MG in SODIUM CHLORIDE 0.9% 100 ML IV SCH (17:48)
[2019-01-29] MEDS: NYSTATIN CREAM 15 GM TUBE TOP SCH ×2 (17:48→21:35)
[2019-01-29] MEDS: FUROSEMIDE 40 MG/4 ML VIAL IV SCH (17:49)
[2019-01-29] MEDS: FLUoxetine 20 MG CAPSULE PO SCH (21:33)
[2019-01-29] MEDS: MELATONIN 3 MG TABLET PO SCH (21:34)
[2019-01-29] MEDS: diphenhydrAMINE CAP 25 MG CAPSULE PO SCH (21:34)
[2019-01-30] MEDS: INSULIN REGULAR 100 UNIT/ML SUBCUT SCH ×5 (00:29→23:28)
[2019-01-30] MEDS: PIPERACILLIN/TAZOBACTAM 3,375 MG in SODIUM CHLORIDE 0.9% 100 ML IV SCH ×4 (00:32→23:15)
[2019-01-30] MEDS: ENOXAPARIN 40 MG/0.4 ML SYRINGE SUBCUT SCH ×2 (00:32→22:17)
[2019-01-30 04:54] LABS: Basophils # 0.1 10*3/uL (0.0-0.2); Basophils % 0.4 % (0.0-0.8); Eosinophils # 0.2 10*3/uL (0.0-0.87); Eosinophils % 1.3 % (0.00-10.9); Immature Granulocytes % 0.4 %; Immature Granulocytes Absolute 0.05 #; Lymphocytes # 3.8 10*3/uL (1.4-4.0); Lymphocytes % 27.2 % (21.3-54.2); Mean Corpuscular HGB Conc 28.4 GM/DL (32-36); Mean Corpuscular Volume 88.9 FL (87-102); Monocytes % 8.5 % (1.7-12.7); Neutrophils % 62.2 % (38.7-73.9); Platelet Count 371 T/CUMM (130-400); Red Cell Distribution Width 17.2 % (9.3-17.3)
[2019-01-30 05:22] LABS: Hemoglobin 9.2 GM/DL (12.0-16.0)
[2019-01-30 05:22] LABS: Calcium 8.5 MG/DL (8.5-10.1)
[2019-01-30 05:29] LABS: Platelet Estimate Normal
[2019-01-30 05:30] LABS: Hypochromasia 2+; Polychromasia Slight
[2019-01-30 05:31] LABS: Anisocytosis 1+; Microcytosis 2+
[2019-01-30 05:32] LABS: Ovalocytes Slight
[2019-01-30] MEDS: methylPREDNISolone SOD SUC 125 MG/2 ML VIAL IV SCH ×2 (06:46→17:22)
[2019-01-30] MEDS: PANTOPRAZOLE 40 MG TABLET PO SCH ×2 (08:29→22:16)
[2019-01-30] MEDS: DOCUSATE SODIUM 100 MG CAPSULE PO SCH ×2 (08:29→22:17)
[2019-01-30] MEDS: FERROUS GLUCONATE 324 MG TABLET PO SCH ×2 (08:29→22:15)
[2019-01-30] MEDS: MONTELUKAST 10 MG TABLET PO SCH (08:30)
[2019-01-30] MEDS: predniSONE 10 MG TABLET PO SCH (08:30)
[2019-01-30] MEDS: ACETAMINOPHEN 325 MG TABLET PO PRN ×2 (08:31→22:16)
[2019-01-30] MEDS: LOSARTAN 50 MG TABLET PO SCH (08:31)
[2019-01-30] MEDS: MULTIVITAMIN (CENTRUM) TABLET PO SCH (08:31)
[2019-01-30] MEDS: CALCIUM (CARBONATE)/VITAMIN D 600 MG-400 UNIT TABLET PO SCH (08:31)
[2019-01-30] MEDS: FUROSEMIDE 40 MG/4 ML VIAL IV SCH (08:33)
[2019-01-30] MEDS: DILTIAZEM CD 120 MG CAPSULE PO SCH (08:33)
[2019-01-30] MEDS: NYSTATIN CREAM 15 GM TUBE TOP SCH ×2 (08:36→22:30)
[2019-01-30] MEDS: INSULIN GLARGINE 100 UNIT/ML SUBCUT SCH (08:36)
[2019-01-30] MEDS: SKIN HEALING OINT (AQUAPHOR) 50 GM TUBE TOP SCH (08:37)
[2019-01-30] MEDS: FLUTICASONE 50 MCG NASAL SPRAY 16 GM BOTTLE BOTH NARES SCH (08:37)
[2019-01-30] MEDS: FLUoxetine 20 MG CAPSULE PO SCH (22:15)
[2019-01-30] MEDS: MELATONIN 3 MG TABLET PO SCH (22:15)
[2019-01-30] MEDS: diphenhydrAMINE CAP 25 MG CAPSULE PO SCH (22:16)
[2019-01-31 05:51] LABS: Calcium 8.6 MG/DL (8.5-10.1); Osmolality,Calculated 283.7 MOS/KG (273-304)
[2019-01-31 06:16] LABS: Basophils % 0.1 % (0.0-0.8); Hematocrit 32.4 VOL% (35.7-47.0); Hemoglobin 9.5 GM/DL (12.0-16.0); Immature Granulocytes % 0.8 %; Immature Granulocytes Absolute 0.08 #; Lymphocytes # 1.5 10*3/uL (1.4-4.0); Lymphocytes % 14.7 % (21.3-54.2); Mean Corpuscular HGB Conc 29.3 GM/DL (32-36); Mean Corpuscular Volume 86.4 FL (87-102); Mean Platelet Volume 9.9 FL (9.6-12.0); Monocytes % 8.1 % (1.7-12.7); Neutrophils % 76.3 % (38.7-73.9); Platelet Count 350 T/CUMM (130-400); Red Blood Count 3.75 MC/CUMM (3.8-5.5); Red Cell Distribution Width 16.7 % (9.3-17.3); White Blood Count 10.3 T/CUMM (4-12)
[2019-01-31] MEDS: INSULIN REGULAR 100 UNIT/ML SUBCUT SCH ×5 (07:04→22:48)
[2019-01-31] MEDS: methylPREDNISolone SOD SUC 125 MG/2 ML VIAL IV SCH (07:04)
[2019-01-31] MEDS: FERROUS GLUCONATE 324 MG TABLET PO SCH ×2 (08:45→22:00)
[2019-01-31] MEDS: PANTOPRAZOLE 40 MG TABLET PO SCH ×2 (08:46→22:00)
[2019-01-31] MEDS: DILTIAZEM CD 120 MG CAPSULE PO SCH (08:46)
[2019-01-31] MEDS: predniSONE 10 MG TABLET PO SCH (08:46)
[2019-01-31] MEDS: INSULIN GLARGINE 100 UNIT/ML SUBCUT SCH (08:47)
[2019-01-31] MEDS: MULTIVITAMIN (CENTRUM) TABLET PO SCH (08:47)
[2019-01-31] MEDS: CALCIUM (CARBONATE)/VITAMIN D 600 MG-400 UNIT TABLET PO SCH (08:47)
[2019-01-31] MEDS: LOSARTAN 50 MG TABLET PO SCH (08:47)
[2019-01-31] MEDS: MONTELUKAST 10 MG TABLET PO SCH (08:47)
[2019-01-31] MEDS: DOCUSATE SODIUM 100 MG CAPSULE PO SCH ×2 (08:47→22:01)
[2019-01-31] MEDS: FUROSEMIDE 40 MG/4 ML VIAL IV SCH (08:48)
[2019-01-31] MEDS: PIPERACILLIN/TAZOBACTAM 3,375 MG in SODIUM CHLORIDE 0.9% 100 ML IV SCH ×3 (08:49→23:06)
[2019-01-31] MEDS: SKIN HEALING OINT (AQUAPHOR) 50 GM TUBE TOP SCH (08:49)
[2019-01-31] MEDS: NYSTATIN CREAM 15 GM TUBE TOP SCH ×2 (08:50→22:02)
[2019-01-31] MEDS: FLUTICASONE 50 MCG NASAL SPRAY 16 GM BOTTLE BOTH NARES SCH (08:54)
[2019-01-31] MEDS: MELATONIN 3 MG TABLET PO SCH (22:00)
[2019-01-31] MEDS: predniSONE 20 MG TABLET PO SCH (22:01)
[2019-01-31] MEDS: ENOXAPARIN 40 MG/0.4 ML SYRINGE SUBCUT SCH (22:01)
[2019-01-31] MEDS: diphenhydrAMINE CAP 25 MG CAPSULE PO SCH (22:01)
[2019-01-31] MEDS: FLUoxetine 20 MG CAPSULE PO SCH (22:01)
[2019-02-01] MEDS: ACETAMINOPHEN 325 MG TABLET PO PRN ×2 (03:00→13:03)
[2019-02-01 05:45] LABS: Basophils % 0.1 % (0.0-0.8); Hematocrit 33.1 VOL% (35.7-47.0); Hemoglobin 9.7 GM/DL (12.0-16.0); Immature Granulocytes % 0.8 %; Immature Granulocytes Absolute 0.09 #; Lymphocytes # 1.2 10*3/uL (1.4-4.0); Lymphocytes % 10.5 % (21.3-54.2); Mean Corpuscular HGB Conc 29.3 GM/DL (32-36); Mean Corpuscular Volume 86.4 FL (87-102); Mean Platelet Volume 9.9 FL (9.6-12.0); Monocytes % 5.4 % (1.7-12.7); Neutrophils % 83.2 % (38.7-73.9); Platelet Count 358 T/CUMM (130-400); Red Blood Count 3.83 MC/CUMM (3.8-5.5); Red Cell Distribution Width 16.4 % (9.3-17.3); White Blood Count 11.7 T/CUMM (4-12)
[2019-02-01 05:57] LABS: Calcium 8.7 MG/DL (8.5-10.1); Hypochromasia 2+; Microcytosis 1+; Osmolality,Calculated 285.5 MOS/KG (273-304); Ovalocytes Slight
[2019-02-01 05:58] LABS: Platelet Estimate Normal
[2019-02-01] MEDS: INSULIN REGULAR 100 UNIT/ML SUBCUT SCH ×4 (10:04→21:19)
[2019-02-01] MEDS: FUROSEMIDE 40 MG/4 ML VIAL IV SCH (10:05)
[2019-02-01] MEDS: CALCIUM (CARBONATE)/VITAMIN D 600 MG-400 UNIT TABLET PO SCH (10:06)
[2019-02-01] MEDS: MONTELUKAST 10 MG TABLET PO SCH (10:06)
[2019-02-01] MEDS: DILTIAZEM CD 120 MG CAPSULE PO SCH (10:06)
[2019-02-01] MEDS: MULTIVITAMIN (CENTRUM) TABLET PO SCH (10:06)
[2019-02-01] MEDS: LOSARTAN 50 MG TABLET PO SCH (10:07)
[2019-02-01] MEDS: FERROUS GLUCONATE 324 MG TABLET PO SCH ×2 (10:07→21:20)
[2019-02-01] MEDS: DOCUSATE SODIUM 100 MG CAPSULE PO SCH ×2 (10:07→21:20)
[2019-02-01] MEDS: PANTOPRAZOLE 40 MG TABLET PO SCH ×2 (10:09→21:20)
[2019-02-01] MEDS: FLUTICASONE 50 MCG NASAL SPRAY 16 GM BOTTLE BOTH NARES SCH (10:11)
[2019-02-01] MEDS: SKIN HEALING OINT (AQUAPHOR) 50 GM TUBE TOP SCH (10:11)
[2019-02-01] MEDS: NYSTATIN CREAM 15 GM TUBE TOP SCH ×2 (10:11→21:24)
[2019-02-01] MEDS: INSULIN GLARGINE 100 UNIT/ML SUBCUT SCH (10:18)
[2019-02-01] MEDS: PIPERACILLIN/TAZOBACTAM 3,375 MG in SODIUM CHLORIDE 0.9% 100 ML IV SCH ×2 (12:57→17:57)
[2019-02-01] MEDS: predniSONE 20 MG TABLET PO SCH ×2 (13:03→21:24)
[2019-02-01] MEDS: ALBUTEROL 2.5 MG/3 ML NEB RESP TX PRN (20:38)
[2019-02-01] MEDS: FLUoxetine 20 MG CAPSULE PO SCH (21:20)
[2019-02-01] MEDS: MELATONIN 3 MG TABLET PO SCH (21:21)
[2019-02-01] MEDS: diphenhydrAMINE CAP 25 MG CAPSULE PO SCH (21:21)
[2019-02-02] MEDS: ENOXAPARIN 40 MG/0.4 ML SYRINGE SUBCUT SCH ×2 (00:13→22:30)
[2019-02-02] MEDS: PIPERACILLIN/TAZOBACTAM 3,375 MG in SODIUM CHLORIDE 0.9% 100 ML IV SCH (00:14)
[2019-02-02 06:32] LABS: Calcium 8.1 MG/DL (8.5-10.1); Osmolality,Calculated 289.1 MOS/KG (273-304)
[2019-02-02 06:38] LABS: Basophils % 0.1 % (0.0-0.8); Eosinophils % 0.1 % (0.00-10.9); Hematocrit 32.1 VOL% (35.7-47.0); Immature Granulocytes % 0.3 %; Immature Granulocytes Absolute 0.03 #; Lymphocytes # 2.3 10*3/uL (1.4-4.0); Lymphocytes % 20.9 % (21.3-54.2); Mean Corpuscular HGB Conc 29.3 GM/DL (32-36); Mean Corpuscular Volume 85.8 FL (87-102); Mean Platelet Volume 10.2 FL (9.6-12.0); Monocytes % 9.1 % (1.7-12.7); Neutrophils % 69.5 % (38.7-73.9); Platelet Count 338 T/CUMM (130-400); Red Blood Count 3.74 MC/CUMM (3.8-5.5); Red Cell Distribution Width 16.3 % (9.3-17.3); White Blood Count 11.1 T/CUMM (4-12)
[2019-02-02 06:39] LABS: Hemoglobin 9.4 GM/DL (12.0-16.0)
[2019-02-02 06:46] LABS: Hypochromasia 2+; Platelet Estimate Normal; Polychromasia Few; Target Cells Few
[2019-02-02] MEDS: INSULIN REGULAR 100 UNIT/ML SUBCUT SCH ×4 (07:43→21:19)
[2019-02-02] MEDS ORDERED: LACTULOSE 20 GM/30 ML UDCUP PO PRN (09:57)
[2019-02-02] MEDS: SKIN HEALING OINT (AQUAPHOR) 50 GM TUBE TOP SCH (10:09)
[2019-02-02] MEDS: AMOXICILLIN/CLAV 875 MG TABLET PO SCH ×2 (10:09→21:19)
[2019-02-02] MEDS: INSULIN GLARGINE 100 UNIT/ML SUBCUT SCH (10:09)
[2019-02-02] MEDS: TORSEMIDE 20 MG TABLET PO SCH (10:10)
[2019-02-02] MEDS: CALCIUM (CARBONATE)/VITAMIN D 600 MG-400 UNIT TABLET PO SCH (10:11)
[2019-02-02] MEDS: LOSARTAN 50 MG TABLET PO SCH (10:11)
[2019-02-02] MEDS: MONTELUKAST 10 MG TABLET PO SCH (10:11)
[2019-02-02] MEDS: MULTIVITAMIN (CENTRUM) TABLET PO SCH (10:11)
[2019-02-02] MEDS: DOCUSATE SODIUM 100 MG CAPSULE PO SCH ×2 (10:11→21:14)
[2019-02-02] MEDS: DILTIAZEM CD 120 MG CAPSULE PO SCH (10:12)
[2019-02-02] MEDS: FERROUS GLUCONATE 324 MG TABLET PO SCH ×2 (10:13→21:18)
[2019-02-02] MEDS: NYSTATIN CREAM 15 GM TUBE TOP SCH ×2 (10:14→21:19)
[2019-02-02] MEDS: FLUTICASONE 50 MCG NASAL SPRAY 16 GM BOTTLE BOTH NARES SCH (10:14)
[2019-02-02] MEDS: PANTOPRAZOLE 40 MG TABLET PO SCH ×2 (10:14→21:19)
[2019-02-02] MEDS: ACETAMINOPHEN 325 MG TABLET PO PRN ×2 (11:29→21:15)
[2019-02-02] MEDS: POLYETHYLENE GLYCOL POWDER 17 GM PACK PO SCH (11:35)
[2019-02-02] MEDS: predniSONE 20 MG TABLET PO SCH ×2 (13:11→21:15)
[2019-02-02] MEDS: POTASSIUM CHLORIDE 20 MEQ TABLET PO PRN ×4 (13:20→21:18)
[2019-02-02] MEDS: ALBUTEROL 2.5 MG/3 ML NEB RESP TX PRN (20:24)
[2019-02-02] MEDS: MELATONIN 3 MG TABLET PO SCH (21:16)
[2019-02-02] MEDS: FLUoxetine 20 MG CAPSULE PO SCH (21:16)
[2019-02-02] MEDS: diphenhydrAMINE CAP 25 MG CAPSULE PO SCH (21:18)
[2019-02-03 05:10] LABS: Basophils % 0.1 % (0.0-0.8); Hemoglobin 9.7 GM/DL (12.0-16.0); Immature Granulocytes % 0.5 %; Immature Granulocytes Absolute 0.04 #; Lymphocytes # 0.8 10*3/uL (1.4-4.0); Lymphocytes % 9.8 % (21.3-54.2); Mean Corpuscular HGB Conc 29.4 GM/DL (32-36); Mean Corpuscular Volume 85.5 FL (87-102); Mean Platelet Volume 10.2 FL (9.6-12.0); Monocytes % 3.5 % (1.7-12.7); Neutrophils % 86.1 % (38.7-73.9); Platelet Count 334 T/CUMM (130-400); Red Blood Count 3.86 MC/CUMM (3.8-5.5); Red Cell Distribution Width 15.9 % (9.3-17.3); White Blood Count 8.6 T/CUMM (4-12)
[2019-02-03 05:38] LABS: Calcium 8.1 MG/DL (8.5-10.1)
[2019-02-03] MEDS: INSULIN REGULAR 100 UNIT/ML SUBCUT SCH ×4 (09:14→21:15)
[2019-02-03] MEDS: INSULIN GLARGINE 100 UNIT/ML SUBCUT SCH (09:16)
[2019-02-03] MEDS: FERROUS GLUCONATE 324 MG TABLET PO SCH ×2 (09:17→21:18)
[2019-02-03] MEDS: LOSARTAN 50 MG TABLET PO SCH (09:17)
[2019-02-03] MEDS: MULTIVITAMIN (CENTRUM) TABLET PO SCH (09:17)
[2019-02-03] MEDS: PANTOPRAZOLE 40 MG TABLET PO SCH ×2 (09:17→21:19)
[2019-02-03] MEDS: predniSONE 20 MG TABLET PO SCH ×2 (09:17→21:19)
[2019-02-03] MEDS: AMOXICILLIN/CLAV 875 MG TABLET PO SCH ×2 (09:17→21:18)
[2019-02-03] MEDS: DILTIAZEM CD 120 MG CAPSULE PO SCH (09:17)
[2019-02-03] MEDS: MONTELUKAST 10 MG TABLET PO SCH (09:18)
[2019-02-03] MEDS: DOCUSATE SODIUM 100 MG CAPSULE PO SCH ×2 (09:18→21:20)
[2019-02-03] MEDS: POLYETHYLENE GLYCOL POWDER 17 GM PACK PO SCH (09:18)
[2019-02-03] MEDS: CALCIUM (CARBONATE)/VITAMIN D 600 MG-400 UNIT TABLET PO SCH (09:18)
[2019-02-03] MEDS: TORSEMIDE 20 MG TABLET PO SCH (09:18)
[2019-02-03] MEDS: NYSTATIN CREAM 15 GM TUBE TOP SCH ×2 (09:18→21:20)
[2019-02-03] MEDS: FLUTICASONE 50 MCG NASAL SPRAY 16 GM BOTTLE BOTH NARES SCH (09:18)
[2019-02-03] MEDS: SKIN HEALING OINT (AQUAPHOR) 50 GM TUBE TOP SCH (09:18)
[2019-02-03] MEDS: MELATONIN 3 MG TABLET PO SCH (21:18)
[2019-02-03] MEDS: FLUoxetine 20 MG CAPSULE PO SCH (21:19)
[2019-02-03] MEDS: ACETAMINOPHEN 325 MG TABLET PO PRN (21:19)
[2019-02-03] MEDS: diphenhydrAMINE CAP 25 MG CAPSULE PO SCH (21:19)
[2019-02-03] MEDS: BENZONATATE 100 MG CAPSULE PO PRN (22:34)
[2019-02-04] MEDS: ENOXAPARIN 40 MG/0.4 ML SYRINGE SUBCUT SCH ×2 (00:06→23:00)
[2019-02-04] MEDS: AMOXICILLIN/CLAV 875 MG TABLET PO SCH ×2 (08:07→20:46)
[2019-02-04] MEDS: DILTIAZEM CD 120 MG CAPSULE PO SCH (08:07)
[2019-02-04] MEDS: MULTIVITAMIN (CENTRUM) TABLET PO SCH (08:08)
[2019-02-04] MEDS: PANTOPRAZOLE 40 MG TABLET PO SCH ×2 (08:08→20:47)
[2019-02-04] MEDS: FERROUS GLUCONATE 324 MG TABLET PO SCH ×2 (08:08→20:47)
[2019-02-04] MEDS: predniSONE 20 MG TABLET PO SCH ×2 (08:08→20:47)
[2019-02-04] MEDS: TORSEMIDE 20 MG TABLET PO SCH (08:08)
[2019-02-04] MEDS: LOSARTAN 50 MG TABLET PO SCH (08:08)
[2019-02-04] MEDS: DOCUSATE SODIUM 100 MG CAPSULE PO SCH ×2 (08:09→20:46)
[2019-02-04] MEDS: CALCIUM (CARBONATE)/VITAMIN D 600 MG-400 UNIT TABLET PO SCH (08:09)
[2019-02-04] MEDS: POLYETHYLENE GLYCOL POWDER 17 GM PACK PO SCH (08:09)
[2019-02-04] MEDS: MONTELUKAST 10 MG TABLET PO SCH (08:09)
[2019-02-04] MEDS: INSULIN REGULAR 100 UNIT/ML SUBCUT SCH ×4 (08:09→20:45)
[2019-02-04] MEDS: NYSTATIN CREAM 15 GM TUBE TOP SCH ×2 (08:10→20:48)
[2019-02-04] MEDS: FLUTICASONE 50 MCG NASAL SPRAY 16 GM BOTTLE BOTH NARES SCH (08:10)
[2019-02-04] MEDS: INSULIN GLARGINE 100 UNIT/ML SUBCUT SCH (08:10)
[2019-02-04] MEDS: SKIN HEALING OINT (AQUAPHOR) 50 GM TUBE TOP SCH (08:11)
[2019-02-04] MEDS: ACETAMINOPHEN 325 MG TABLET PO PRN ×2 (10:11→21:32)
[2019-02-04] MEDS: BENZONATATE 100 MG CAPSULE PO PRN ×2 (10:14→18:04)
[2019-02-04] MEDS: MELATONIN 3 MG TABLET PO SCH (20:46)
[2019-02-04] MEDS: diphenhydrAMINE CAP 25 MG CAPSULE PO SCH (20:47)
[2019-02-04] MEDS: FLUoxetine 20 MG CAPSULE PO SCH (20:47)
[2019-02-05] MEDS: FERROUS GLUCONATE 324 MG TABLET PO SCH (08:40)
[2019-02-05] MEDS: PANTOPRAZOLE 40 MG TABLET PO SCH (08:41)
[2019-02-05] MEDS: MONTELUKAST 10 MG TABLET PO SCH (08:41)
[2019-02-05] MEDS: predniSONE 20 MG TABLET PO SCH (08:41)
[2019-02-05] MEDS: TORSEMIDE 20 MG TABLET PO SCH (08:41)
[2019-02-05] MEDS: DILTIAZEM CD 120 MG CAPSULE PO SCH (08:42)
[2019-02-05] MEDS: BENZONATATE 100 MG CAPSULE PO PRN (08:42)
[2019-02-05] MEDS: AMOXICILLIN/CLAV 875 MG TABLET PO SCH (08:42)
[2019-02-05] MEDS: LOSARTAN 50 MG TABLET PO SCH (08:42)
[2019-02-05] MEDS: CALCIUM (CARBONATE)/VITAMIN D 600 MG-400 UNIT TABLET PO SCH (08:42)
[2019-02-05] MEDS: MULTIVITAMIN (CENTRUM) TABLET PO SCH (08:42)
[2019-02-05] MEDS: INSULIN GLARGINE 100 UNIT/ML SUBCUT SCH (08:43)
[2019-02-05] MEDS: NYSTATIN CREAM 15 GM TUBE TOP SCH (08:43)
[2019-02-05] MEDS: INSULIN REGULAR 100 UNIT/ML SUBCUT SCH ×3 (08:43→15:59)
[2019-02-05] MEDS: DOCUSATE SODIUM 100 MG CAPSULE PO SCH (08:44)
[2019-02-05] MEDS: FLUTICASONE 50 MCG NASAL SPRAY 16 GM BOTTLE BOTH NARES SCH (08:44)
[2019-02-05] MEDS: POLYETHYLENE GLYCOL POWDER 17 GM PACK PO SCH (08:44)
[2019-02-05] MEDS: SKIN HEALING OINT (AQUAPHOR) 50 GM TUBE TOP SCH (08:44)
[2019-02-05 12:18] VITALS: BP 134/59
== END 2019-02-05 16:47 | disposition home health service (06) | DRG 190 ==
LOC: EDUNIT# → EDBD → N.ED 16:58 → N.EDINP 19:23 → N.5E 20:50
PROVIDERS: ADMIT Family Medicine; ATTEND Family Medicine

== ENCOUNTER 2019-02-24 18:33 | Observation (INO) ==
[2019-02-24] MEDS ORDERED: ALBUTEROL/IPRATROPIUM 3 ML NEB RESP TX STA (18:51)
[2019-02-24 19:35] LABS: Basophils # 0.1 10*3/uL (0.0-0.2); Basophils % 0.8 % (0.0-0.8); Eosinophils # 0.5 10*3/uL (0.0-0.87); Eosinophils % 4.8 % (0.00-10.9); Hematocrit 32.6 VOL% (35.7-47.0); Hemoglobin 9.5 GM/DL (12.0-16.0); Immature Granulocytes % 0.4 %; Immature Granulocytes Absolute 0.04 #; Lymphocytes # 3.4 10*3/uL (1.4-4.0); Lymphocytes % 33.1 % (21.3-54.2); Mean Corpuscular HGB Conc 29.1 GM/DL (32-36); Mean Corpuscular Volume 85.8 FL (87-102); Monocytes % 8.8 % (1.7-12.7); Neutrophils % 52.1 % (38.7-73.9); Platelet Count 339 T/CUMM (130-400); Red Cell Distribution Width 15.3 % (9.3-17.3); White Blood Count 10.2 T/CUMM (4-12)
[2019-02-24 19:56] LABS: Apearance,Urine CLEAR (Clear); Bacteria,Urine Occasional /HPF (Few); Bilirubin,Urine Negative (Negative); Blood, Urine Small mg/dL (Negative); Glucose,Urine (UA) >=500 mg/dL (Negative); Ketones,Urine 5 mg/dL (Negative); Mucus,Urine Occasional /LPF (Occasional); Nitrite,Urine Negative (Negative); Protein,Urine 100 MG/DL; RBC,Urine 7 /HPF (0-4); Squamous Epithelial Cell,Urine Occasional /HPF (0-10); Urine Color Yellow (Yellow); Urine Specific Gravity 1.018 (1.001-1.035); Urine Urobilinogen < 2.0 EU/DL (0.2-1.0); WBC,Urine 4 /HPF (0-6)
[2019-02-24 19:57] LABS: Alanine Aminotransferase 13 U/L (13-56); Albumin 2.2 G/DL (3.4-5.0); Alkaline Phosphatase 99 U/L (45-117); Aspartate Amino Transferase 17 U/L (0-37); Bilirubin,Total < 0.39 MG/DL (0.2-1.0); Blood Urea Nitrogen 6 MG/DL (7-18); Calcium 8.3 MG/DL (8.5-10.1); Estimated Glom Filtration Rate 125 ML/MIN; Glucose 241 MG/DL (74-106); Osmolality,Calculated 286.3 MOS/KG (273-304)
[2019-02-24] MEDS ORDERED: FUROSEMIDE 20 MG/2 ML VIAL IV STA (20:24)
[2019-02-24] MEDS ORDERED: ONDANSETRON 4 MG/2 ML VIAL IV STA (20:53)
[2019-02-24] MEDS ORDERED: diphenhydrAMINE CAP 25 MG CAPSULE PO PRN (22:15)
[2019-02-24] MEDS ORDERED: NICOTINE 21 MG/24 HR PATCH TRANSDERM PRN (22:15)
[2019-02-25] MEDS: ACETAMINOPHEN 325 MG TABLET PO PRN ×2 (00:11→04:18)
[2019-02-25] MEDS: ONDANSETRON 4 MG/2 ML VIAL IV PRN ×2 (00:14→04:20)
[2019-02-25] MEDS ORDERED: DEXTROSE 50% 25 GM/50 ML SYRINGE IV PRN (00:21)
[2019-02-25] MEDS ORDERED: ALBUTEROL 2.5 MG/3 ML NEB RESP TX PRN (00:21)
[2019-02-25] MEDS ORDERED: GLUCAGON 1 MG VIAL IM PRN (00:21)
[2019-02-25] MEDS ORDERED: methylPREDNISolone SOD SUC 125 MG/2 ML VIAL IV ONE (00:22)
[2019-02-25] MEDS: ALBUTEROL/IPRATROPIUM 3 ML NEB RESP TX SCH ×2 (00:51→08:08)
[2019-02-25] MEDS: INSULIN REGULAR 100 UNIT/ML SUBCUT SCH ×3 (01:41→11:48)
[2019-02-25] MEDS ORDERED: INFLUENZA VIRUS VACCINE 0.5 ML SYRINGE IM ONE (03:18)
[2019-02-25] MEDS: methylPREDNISolone SOD SUC 40 MG/1 ML VIAL IV SCH ×2 (07:08→14:05)
[2019-02-25] MEDS ORDERED: FERROUS GLUCONATE 324 MG TABLET PO SCH (08:00)
[2019-02-25] MEDS ORDERED: cefTRIAXone 1,000 MG in SYRINGE 1 EACH IV SCH (08:00)
[2019-02-25 08:44] LABS: % Iron Saturation 6.3 % (18-50); Ferritin 32.7 ng/ml (8-252); Risk Ratio 3.68; VLDL CHOLESTEROL 20.8 MG/DL
[2019-02-25] MEDS ORDERED: ENOXAPARIN 40 MG/0.4 ML SYRINGE SUBCUT SCH (09:00)
[2019-02-25] MEDS ORDERED: LOSARTAN 50 MG TABLET PO SCH (09:00)
[2019-02-25] MEDS ORDERED: AZITHROMYCIN 250 MG TABLET PO SCH (09:00)
[2019-02-25] MEDS ORDERED: PANTOPRAZOLE 40 MG TABLET PO SCH (09:00)
[2019-02-25] MEDS ORDERED: MONTELUKAST 10 MG TABLET PO SCH (09:00)
[2019-02-25] MEDS ORDERED: DILTIAZEM CD 120 MG CAPSULE PO SCH (09:00)
[2019-02-25] MEDS ORDERED: FUROSEMIDE 20 MG/2 ML VIAL IV SCH (09:00)
[2019-02-25] MEDS ORDERED: CYANOCOBALAMIN 1000 MCG/1 ML VIAL IM ONE (09:30)
[2019-02-25 11:46] VITALS: BP 137/76
[2019-02-25 17:51] LABS: Folate 17.1 NG/ML (5.4-24.0)
[2019-02-25] MEDS ORDERED: FLUoxetine 20 MG CAPSULE PO SCH (21:00)
== END 2019-02-25 16:03 | disposition hospice, home (50) ==
LOC: EDUNIT# → EDBD → N.ED 18:33 → N.EDINP 18:33 → N.5E 23:57
PROVIDERS: ADMIT Internal Medicine; ATTEND Internal Medicine